=== PATIENT | female | born 1950 | race Caucasian/White ===

== ENCOUNTER → 2020-11-22 09:26 | Outpatient (REF) | payer OTHER, SELFPAY | LOC: ANHLAB 09:26 | PROVIDERS: PCP Emergency Medicine; Visit Provider Nurse Practitioner | DX: C44.612 Basal cell carcinoma of skin of right upper limb, including shoulder (principal) | CPT/HCPCS: 88305 ==

== ENCOUNTER → 2020-12-12 10:18 | Outpatient (REF) | payer OTHER, SELFPAY | LOC: ANHLAB 10:18 | PROVIDERS: PCP Emergency Medicine; Visit Provider Nurse Practitioner | DX: C44.612 Basal cell carcinoma of skin of right upper limb, including shoulder (principal) | CPT/HCPCS: 88305; 88331 ==

== ENCOUNTER → 2022-01-02 13:45 | Outpatient (REF) | payer OTHER, SELFPAY | LOC: ANHLAB 13:45 | PROVIDERS: PCP Emergency Medicine; Visit Provider Nurse Practitioner | DX: D49.2 Neoplasm of unspecified behavior of bone, soft tissue, and skin (principal); C44.329 Squamous cell carcinoma of skin of other parts of face; C44.622 Squamous cell carcinoma of skin of right upper limb, including shoulder; C44.519 Basal cell carcinoma of skin of other part of trunk | CPT/HCPCS: 88305 ==